=== PATIENT | female | born 1945 | race Caucasian/White ===

== ENCOUNTER → 2019-03-16 08:59 | Day surgery (SDC) | payer MEDICARE ==
[~2019-03-16 08:59] MED LIST: Bupivacaine 0.25% SDV PF* 10 ML VIAL INJ ONE; Lidocaine 1% w EPI 1:200,000* 30 ML VIAL ONE
[2019-03-16 09:51] VITALS: BP 140/67
--- NOTE | 2019-03-16 19:37 | OP ---
DATE OF OPERATION: 03/16/19 - [facility] DATE OF : 47 SURGEON: Jed Pruitt MD. MERCHANDISE FLOW ASSOCIATE: None. ANESTHESIOLOGIST: None. ANESTHESIA: Local only with 1% lidocaine with epinephrine. PRE-OP DIAGNOSIS: Right ring trigger finger. POST-OP DIAGNOSIS: Right ring trigger finger. OPERATIVE PROCEDURE: Right ring trigger finger release of the A1 mikael. ESTIMATED BLOOD LOSS: 4 mL. COMPLICATIONS: None. FINDINGS: See above and below. DESCRIPTION OF PROCEDURE: Chloe was seen in the preoperative holding area. The correct site, side, and procedure were identified. We had a time-out, and I infiltrated 1% lidocaine with epinephrine along the operative site. We then came back to the operating room, where the arm was prepped and draped in the usual fashion and a time-out was performed. I made a 1 cm longitudinal incision over the right ring finger A1 mikael. Dissection was carried down. Full-thickness flaps were bluntly raised off of the tendon sheath and Ragnell retractors were placed. The A1 mikael was released with the tenotomy scissors, as was the leading edge of the A2 mikael. The fibrous bands proximal to the A1 mikael were released with the tenotomy scissors. There were some adhesions between the FDS and the FDP, and these were debrided and excised together with some tenosynovitis. Everything was looking very good. I had her flex and extend the hand multiple times. There was no triggering. The wound was irrigated out and the skin was closed with 4- 0 nylon sutures. She was taken to the recovery room in stable condition. [id number]/[facility] #: [id number] [facility]
== END | disposition home or self-care (01) ==
LOC: OR 08:59
PROVIDERS: ATTEND Orthopaedic Surgery Hand Surgery
DX: M65.341 Trigger finger, right ring finger (principal); Z87.891 Personal history of nicotine dependence; Z88.0 Allergy status to penicillin; M81.0 Age-related osteoporosis without current pathological fracture; K90.0 Celiac disease; M19.049 Primary osteoarthritis, unspecified hand
CPT/HCPCS: J2001; J3490